=== PATIENT | female | born 1960 | race African-American/Black ===

== ENCOUNTER 2022-06-02 09:53 | Day surgery (SDC) | payer OTHER ==
[~2022-06-02] VITALS: Ht 157.5 cm; Wt 61.2 kg
[2022-06-02] MEDS ORDERED: fentaNYL citrate 0.05 MG/ML VIAL ONE (14:27)
[2022-06-02] MEDS ORDERED: LIDOCAINE 2% 100 MG/5 ML UJET TP ONE (14:29)
[2022-06-02] MEDS ORDERED: fentaNYL citrate 0.05 MG/ML VIAL IVP ONE (15:15)
== END 2022-06-02 15:47 | disposition home or self-care (01) ==
LOC: MOR 09:53 → MMU 10:28 → MOR 15:47
PROVIDERS: ATTEND Internal Medicine Gastroenterology
DX: Z12.11 Encounter for screening for malignant neoplasm of colon (principal); E11.9 Type 2 diabetes mellitus without complications; Z20.822 Contact with and (suspected) exposure to COVID-19
CPT/HCPCS: 45378; 87426; J3010